=== PATIENT | female | born 1955 | race Caucasian/White ===

== ENCOUNTER → 2019-08-03 | Outpatient (CLI) | payer OTHER ==
[2019-08-03 10:30] LABS: Basophils # (A) 0.1 k/uL (0-0.2); Basophils % (A) 1 %; Eosinophils # (A) 0.1 k/uL (0-0.7); Eosinophils % (A) 2 %; HCT 46.3 % (34.0-46.0); HGB 15.2 gm/dL (11.4-16.0); Lymphocytes # (A) 1.5 k/uL (1.0-4.8); Lymphocytes % (A) 31 %; MCH 29.3 pg (25.0-35.0); MCHC 32.9 g/dL (31.0-37.0); MCV 89.1 fL (80.0-100.0); Mean Platelet Volume 7.6; Monocytes # (A) 0.3 k/uL (0-1.0); Monocytes % (A) 6 %; Neutrophils # (A) 2.7 k/uL (1.3-7.7); Neutrophils % (A) 57 %; Platelet Count 279 k/uL (150-450); RDW 12.5 % (11.5-15.5); WBC 4.7 k/uL (3.8-10.6)
[2019-08-03 10:51] LABS: Potassium 4.3 mmol/L (3.5-5.1)
== END | disposition home or self-care (01) ==
LOC: LABPAT 09:40
PROVIDERS: ATTEND Orthopaedic Surgery
DX: Z01.812 Encounter for preprocedural laboratory examination (principal); M65.341 Trigger finger, right ring finger
CPT/HCPCS: 36415; 80051; 85025

== ENCOUNTER 2019-08-16 12:03 | Day surgery (SDC) | payer OTHER ==
[2019-08-14 10:34] VITALS: BMI 26.7
--- NOTE | 2019-08-15 14:32 | HP ---
HISTORY AND PHYSICAL DATE OF SURGERY: 08/16/2019 Jen Ribeiro is a 64-year-old patient seen with symptomatic right ring finger trigger finger. We discussed options. She elected to proceed with releasing the A1 fran of her ring finger. Consent was obtained. PAST MEDICAL HISTORY: Noncontributory. PAST SURGICAL HISTORY: Noncontributory. DAILY MEDICATIONS: None. ALLERGIES: NONE REPORTED. SOCIAL HISTORY: She denies current tobacco use. PHYSICAL EVALUATION OF THE RIGHT HAND: She has tenderness along the A1 fran area of the right ring finger. There is clicking, catching, and locking. There is no tenderness along the remaining A1 fran areas. Carpal Tinel's and carpal Phalen's are both negative. There is good perfusion distally. There is good sensation distally. RADIOGRAPHS: Radiographs of the right hand revealed some mild osteoarthritic changes. IMPRESSION: Right ring finger trigger finger. PLAN: Release A1 fran of right ring finger. MMBIRD / IJN: [id number] /
[~2019-08-16 12:03] MED LIST: DEXAMETHASONE SOD PHOSPHATE 10 MG/ML 1 ML VIAL IV ONE; KETOROLAC 30 MG/ML 1 ML VIAL IVP SCH; LACTATED RINGERS 1,000 ML IV SCH; LIDOCAINE 1% 20 ML VIAL (10MG/ML) FOR IV START INTRADERMA PRN; MIDAZOLAM 2 MG/2 ML VIAL IV PRN; fentaNYL (PF) 50 MCG/ML 2 ML AMP IV PRN
[2019-08-16 12:23] VITALS: TEMP 97.3
[2019-08-16] MEDS ORDERED: ONDANSETRON 4 MG/2 ML VIAL IVP ONE (12:31)
[2019-08-16] MEDS ORDERED: PROPOFOL 10 MG/ML 20 ML VIAL IV ONE (13:32)
[2019-08-16] MEDS ORDERED: MIDAZOLAM 2 MG/2 ML VIAL ONE (13:32)
[2019-08-16] MEDS ORDERED: fentaNYL (PF) 50 MCG/ML 2 ML AMP ONE (13:32)
[2019-08-16] MEDS ORDERED: LIDOCAINE 1% INJ 10MG/ML (20 ML MDV) ONE (13:32)
[2019-08-16] MEDS ORDERED: KETAMINE 10 MG/ML 20 ML VIAL ONE (13:32)
[2019-08-16] MEDS ORDERED: BUPIVACAINE (PF) 0.25% 30 ML VIAL SQ ONE (13:45)
[2019-08-16 14:04] VITALS: BP 106/67; PULSE 74; RESP 16
--- NOTE | 2019-08-16 14:04 | P.OP ---
Date of Procedure: 08/16/19 Preoperative Diagnosis: Right ring finger trigger finger Postoperative Diagnosis: Same Procedure(s) Performed: Release A1 fran right ring finger Anesthesia: MAC, local Surgeon: Richard Steele Estimated Blood Loss (ml): 0 Pathology: none sent Condition: stable Disposition: PACU Indications for Procedure: 64-year-old patient seen with asymptomatic right ring finger trigger finger. After options regarding treatment were discussed with her, she elected to proceed with release A1 fran right ring finger. Operative Findings: See description of procedure Description of Procedure: The patient was taken to the operative suite. The patient received preoperative IV antibiotics. The patient received IV sedation by the department of anesthesia. A well-padded tourniquet was placed on the proximal right upper extremity. The right upper extremity was prepped and draped in the normal sterile orthopedic fashion. The proposed incision site was infiltrated with 5 mL quarter percent plain Marcaine. Once sufficient local analgesia was noted the extremity was elevated and tourniquet insufflated to 250. I now made an incision over the area of the A1 fran. Careful dissection was taken down to the A1 fran. The A1 fran was identified. I released the A1 fran with blunt tenotomies. There was complete release of A1 fran. There was good excursion of the tendon with no impingement. The wound was irrigated. There was good hemostasis. The skin margins were approximated nylon suture. Sterile dressings were applied. The tourniquet was released and immediate capillary refill of all digits noted. The patient was now awakened and transferred to recovery stable condition.
== END 2019-08-16 14:48 | disposition home or self-care (01) ==
LOC: OR 12:03
PROVIDERS: ATTEND Orthopaedic Surgery
DX: M65.341 Trigger finger, right ring finger (principal)
CPT/HCPCS: 26055; J2250; J1100; J2405; J0690; J2001; J3010; J2704